=== PATIENT | male | born 1960 | race African-American/Black ===

== ENCOUNTER → 2017-11-22 10:12 | Outpatient (CLI) | payer MEDICARE, OTHER, SELFPAY ==
--- NOTE | 2017-11-22 | DI.CT.S_ITS ---
PROCEDURE: CT ABDOMEN PELVIS WO/W CON INDICATIONS: Painless, microhematuria TECHNIQUE: Optional 5 mm thick noncontrast images acquired from the diaphragm to the symphysis pubis. After the administration of intravenous contrast, 5 mm thick images acquired from the diaphragm to the symphysis pubis after a 10-minute delay. 2 mm thick coronal and sagittal reformats were then performed of the kidneys and ureters. For radiation dose reduction, the following was used: automated exposure control, adjustment of mA and/or kV according to patient size. COMPARISON: [facility], CT, CHEST W/O CONTRAST, 03/12/2014, 8:14. [facility], CT, IVP (ABD & PEL WWO CONTRAST), 04/01/2014, 8:40. [facility], US, RENAL COMPLETE, 03/09/2016, 10:55. FINDINGS: Image quality: Excellent. Lung bases: Lung bases are clear. Heart size is normal. Small hiatal hernia. Urinary system: Both kidneys are normal in size, without hydronephrosis or nephrolithiasis on pre-contrast images. No perinephric fat stranding. There is normal bilateral renal enhancement. Renal calyces appear normal in morphology when filled with contrast. Tiny indeterminate hypodense nodule is in right kidney are most likely small renal cysts. Opacified portions of both ureters demonstrate normal caliber. Bladder is not fully distended. There is appearance of mild concentric bladder wall thickening. There is nodularity in the bladder base. Prostate is enlarged.. No calcified bladder stones. Other solid organs: Liver is normal in size and enhancement. Gallbladder contains multiple stones. Biliary system is non dilated. Pancreas enhances normally. Spleen is normal in size and enhancement. No adrenal nodules. Peritoneum and bowel: Bowel loops demonstrate normal wall thickness and caliber. There are scattered colonic diverticula. No evidence for acute diverticulitis. No free fluid or air. Nodes and vessels: No retroperitoneal or mesenteric adenopathy by size criteria. Aorta and inferior vena cava are normal in size. Abdominal wall: No ventral hernias. Pelvis: No pathologic free pelvic fluid. No inguinal hernias or adenopathy. Bones: No suspicious bony lesions. No vertebral body compression fractures. There is a nerve stimulator in the upper lumbar spine projecting to the level of T12-L1. IMPRESSION: 1. Nodularity at bladder base which may be caused by enlarged prostate protruding into the bladder, but a uroepithelial mass is not excluded. Recommend cystoscopy for followup evaluation. 2. Mild concentric bladder wall thickening. Differential diagnoses include inadequate bladder distension, mild cystitis or chronic bladder outlet obstruction. 3. Small indeterminate hypodense nodule is seen in the right kidney, most likely small renal cortical cysts. 4. Cholelithiasis. 5. Diverticulosis without acute diverticulitis. Dictated by: Natalie Gao M.D. on 11/22/2017 at 11:24 Transcribed by: CHASTITY on 11/22/2017 at 11:41 Approved by: Natalie Gao M.D. on 11/23/2017 at 9:02
== END ==
PROVIDERS: Visit Provider Urology
DX: R31.21 Asymptomatic microscopic hematuria (principal); K80.20 Calculus of gallbladder without cholecystitis without obstruction; K57.90 Diverticulosis of intestine, part unspecified, without perforation or abscess without bleeding
CPT/HCPCS: 74178; Q9967

== ENCOUNTER 2019-01-08 19:21 | Emergency (ER) | payer OTHER, MEDICARE, SELFPAY ==
[2019-01-08 19:36] VITALS: BP 134/66; PULSE 85; RESP 16; TEMP 36.9; O2SAT 100
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
--- NOTE | 2019-01-08 20:04 | PC.NURSE ---
Pt provided a urinal and freely stood at bedside to use it.
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
[2019-01-08] MEDS: HYDROCODONE/ACET 10/325 TABLET 1 TAB PO (21:08)
[2019-01-08 21:58] VITALS: BP 120/70; PULSE 77; RESP 14; O2SAT 97
== END 2019-01-08 22:22 | disposition home or self-care (01) ==
PROVIDERS: Emergency Provider Emergency Medicine
DX: M25.561 Pain in right knee (principal); M25.562 Pain in left knee; V89.2XXA Person injured in unspecified motor-vehicle accident, traffic, initial encounter
CPT/HCPCS: 73562; 99283